=== PATIENT | male | born 2000 | race Caucasian/White ===

== ENCOUNTER 2020-06-17 01:24 | Emergency (ER) | payer BC, SELFPAY ==
[2020-06-17 01:26] VITALS: BP 131/92; PULSE 67; RESP 17; TEMP 36.4; O2SAT 99; BMI 32.2
--- NOTE | 2020-06-17 01:45 | ED.DCSUM_ITS ---
- ER Visit Summary Date of Service: 06/17/20 Chief Complaint: Bloody stools History of Present Illness: The patient is a 20 M who presents with bloody stools. Started yesterday. He has had a couple of episodes of bright red blood per rectum. He increase his water intake and it slowed the bloody bowel mov ements. He has no abdominal pain. He does admit to some rectal pain during and after bowel movements. He has no history of hemorrhoids in the past. He denies any dizziness or lightheadedness. He denies any history of this. No history of colonoscopies in the past. He has no personal or family history of Crohn's or ulcerative colitis. Physical Examination: Vital signs reviewed. HEENT exam unremarkable. Heart is regular rate and rhythm without murmurs. Lungs are clear to auscultation. Abdomen is soft and nontender. Full exam reveals no tenderness. There are no h emorrhoids seen. There is no blood noted as well. Extremities reveal no edema. Skin exam normal. Neurologic exam normal. Test Results: Hemoglobin normal. Sodium 134, chloride 108, BUN 19 Emergency Department Course and Treatment: I did order coagulation studies but they hemolyzed in the laboratory. The patient refused any further blood draws. His vital signs are stable. His hemoglobin is normal. I feel that his work-up can be completed as an outpatient. I will give him Dr. Reynoso with surgery who can do endoscopic studies if his bleeding persists. Treatment Plan: [] Disposition: Discharge Impression: Lower GI bleed This note was generated with [employer] dictation software. It may contain incorrect words, spelling, and punctuation that were not noted in review of the chart prior to signing ED Disposition - Plan for ED Patient: Disposition: Home or Assisted Living Instructions: ED Lower GI Bleeding (Stable) Referrals: Care Physician,No Primary [Primary Care Provider] - Sea Reynoso MD [STAFF PHYSICIAN] -
[2020-06-17 02:01] LABS: Absolute Lymphocyte Count 4.21 X10^3/uL (0.83-4.51); Absolute Neutrophil Count 4.3 X10^3/uL (2.0-7.7); Basophil# 0.06 X10^3/uL; Basophil% 0.6 % (0-1); Eosinophil# 0.16 X10^3/uL; Eosinophils% 1.6 % (0-5); Hematocrit 42.4 % (40-54); Hemoglobin 14.6 g/dL (13.0-16.5); Lymphocyte # 4.21 X10^3/ul (4.0); Lymphocyte % 43.4 % (19-41); Mean Corp Hgb Conc 34.4 g/dL (32-36); Mean Corpuscular Hgb 29.4 pg (27.0-32.0); Mean Corpuscular Volume 85.3 fL (80-94); Mean Platelet Vol. 9.6 fl (6.2-12.0); Monocyte# 0.97 X10^3/uL; NRBC Flagged by Analyzer 0 % (0-5); Neutrophil # 4.28 X10^3/uL (2.7-7.7); Neutrophil % 44.2 % (47-70); Platelet Count 305 K/mm3 (150-450); RBC Distribution Width CV 11.9 % (11.6-14.6); RBC Distribution Width SD 36.4 fl (35.1-43.9); Red Blood Count 4.97 M/mm3 (4.6-6.2); White Blood Count 9.7 K/mm3 (4.4-11.0)
[2020-06-17 02:20] LABS: Anion Gap 6 (5-15); BUN 19 mg/dL (7-18); BUN/Creat Ratio 19.2 RATIO (10-20); Calcium,Total 9.3 mg/dL (8.5-10.1); Chloride 108 mmol/L (98-107); Creatinine, Serum 0.99 mg/dL (0.70-1.30); EST Glomerular Filtration Rate 100 mL/min (>60); Est Glom Filt Rate - Afr Amer 121 mL/min (>60); Estimated Creatinine Clearance 105.62 ml/min; Glucose 84 mg/dL (74-106); Potassium 3.8 mmol/L (3.5-5.1); Sodium Level 134 mmol/L (136-145)
[2020-06-17 02:36] VITALS: PULSE 88; RESP 16; O2SAT 98
== END 2020-06-17 02:37 | disposition home or self-care (01) ==
PROVIDERS: Emergency Provider Emergency Medicine
DX: K92.1 Melena (principal)
CPT/HCPCS: 36415; 80048; 85025; 99282

== ENCOUNTER → 2024-07-15 | Outpatient (CLI) | payer SELFPAY ==
[2024-07-18 09:07] LABS: Cotinine Screen Blood <1.0 ng/mL (.); Nicotine Blood <1.0 ng/mL (.)
== END | disposition home or self-care (01) ==
LOC: LABSPEC 11:13
PROVIDERS: Referring Provider Registered Nurse; Visit Provider Registered Nurse
DX: Z00.00 Encounter for general adult medical examination without abnormal findings (principal)
CPT/HCPCS: 80323; G0480